=== PATIENT | female | born 1995 | race Caucasian/White ===

== ENCOUNTER 2020-04-15 16:53 | Inpatient (IN) | payer OTHER ==
[~2020-04-15] VITALS: Ht 152.4 cm; Wt 60.5 kg
[2020-04-15] MEDS ORDERED: PREN1TAB60 PO (17:07)
[2020-04-15] MEDS ORDERED: VALA500T4 PO (17:08)
[2020-04-15] MEDS ORDERED: FENTANYL/BUPIV./NS/PF 250 ML EPIDCONT SCH ×2 (17:08→20:29)
[2020-04-15] MEDS ORDERED: LACTATED RINGERS 1,000 ML IV SCH ×2 (17:08→20:29)
[2020-04-15] MEDS ORDERED: D5%-LACTATED RINGERS 1,000 ML IV SCH (17:08)
[2020-04-15] MEDS ORDERED: OXYTOCIN 30U/ 0.9% NaCL 500ML 500 ML IV ONE (17:08)
[2020-04-15] MEDS ORDERED: TERBUTALINE 1 MG/ML, 1ML SQ PRN (17:30)
[2020-04-15] MEDS ORDERED: FENTANYL PF 100 MCG/2ML IVPush PRN (17:30)
[2020-04-15] MEDS ORDERED: ONDANSETRON 2MG/ML, 2ML IVPush PRN (17:30)
[2020-04-15] MEDS ORDERED: FENTANYL PF 500 MCG, BUPIVACAINE/PF 0.5%, 30ML 62.5 ML in SODIUM CHLORIDE 0.9% 177.5 ML EPIDCONT SCH (17:30)
[2020-04-15] MEDS ORDERED: TERBUTALINE 1 MG/ML, 1ML IVPush PRN (17:30)
[2020-04-15 17:35] VITALS: BP 133/71
[2020-04-15 17:59] LABS: MEAN CORPUSCULAR HEMOGLOBIN 33.2 pg (27.0-34.8); MEAN CORPUSCULAR HGB CONC 33.7 g/dL (32.4-35.8); MEAN CORPUSCULAR VOLUME 98.4 fL (80-100); MEAN PLATELET VOLUME 8.1 fL (7.4-10.4); PLATELET COUNT 219 x10^3/uL (130-400); RED BLOOD COUNT 3.44 x10^6/uL (3.82-5.3); RED CELL DISTRIBUTION WIDTH 13.6 % (9.6-15.2)
[2020-04-15] MEDS ORDERED: LIDOCAINE 1%, 20ML ONE (18:08)
[2020-04-15] MEDS ORDERED: NEWBORN KIT ONE (18:08)
[2020-04-15] MEDS ORDERED: MISOPROSTOL 200 MCG TABLET ONE (18:09)
[2020-04-15] MEDS ORDERED: FENTANYL PF 100 MCG/2ML ONE (18:09)
[2020-04-15] MEDS ORDERED: OXYTOCIN 30U/ 0.9% NaCL 500ML 500 ML ONE (18:18)
[2020-04-15 18:29] LABS: AMPHETAMINE SCREEN, URINE Negative (Negative); BARBITURATE SCREEN, URINE Negative (Negative); BENZODIAZEPINE SCREEN, URINE Negative (Negative); CANNABINOID SCREEN, URINE Negative (Negative); COCAINE SCREEN, URINE Negative (Negative); METHADONE SCREEN, URINE Negative (Negative); OPIATE SCREEN, URINE Negative (Negative)
[2020-04-15 18:38] LABS: MD YES
[2020-04-15 18:39] LABS: BAND#(MANUAL) 1.46 x10^3/uL; BANDS%(MANUAL) 9 % (0-7); BASOS#(MANUAL) 0.16 x10^3/uL (0-0.1); BASOS% (MANUAL) 1 % (0-1); LYMPH#(MANUAL) 0.97 x10^3/uL (1-3.4); LYMPHS% (MANUAL) 6 % (22-44); MONOS#(MANUAL) 0.97 x10^3/uL (0.3-2.7); MONOS% (MANUAL) 6 % (2-9); SEG#(MANUAL) 12.64 x10^3/uL (1.8-6.8); SEGS% (MANUAL) 78 % (42-75)
[2020-04-15 18:40] LABS: <PLATELET ESTIMATE> ADEQUATE; <PLT MORPHOLOGY> NORMAL PLT MORPH; <RBC MORPHOLOGY> NORMAL
[2020-04-15] MEDS ORDERED: LACTATED RINGERS 1,000 ML IVBOLUS PRN (20:30)
[2020-04-15] MEDS ORDERED: EPHEDRINE 50 MG/ML, 1ML IVPush PRN (20:30)
[2020-04-15] MEDS ORDERED: NALOXONE 0.4 MG/ML, 1ML IVPush PRN (20:30)
[2020-04-15] MEDS ORDERED: BUPIVACAINE 0.25% ONE (20:31)
[2020-04-15] MEDS ORDERED: OXYTOCIN 30U/ 0.9% NaCL 500ML 500 ML IV PRN (21:32)
[2020-04-16] MEDS: OXYTOCIN 30U/ 0.9% NaCL 500ML 500 ML IV SCH ×3 (01:52→21:52)
[2020-04-16] MEDS ORDERED: MAGNESIUM HYDROXIDE 8%, 30ML UDC PO PRN (02:00)
[2020-04-16] MEDS ORDERED: MISOPROSTOL 200 MCG TABLET PR PRN (02:00)
[2020-04-16] MEDS ORDERED: MEASLES,MUMPS&RUBELLA VACC/PF 0.5 ML SQ-VACC PRN (02:00)
[2020-04-16] MEDS ORDERED: HYDROcodone/APAP 5/325 TABLET PO PRN ×2 (02:00)
[2020-04-16] MEDS ORDERED: ACETAMINOPHEN 325 MG TABLET PO PRN ×2 (02:00)
[2020-04-16] MEDS ORDERED: RHOGAM FROM BLOOD BANK 1 NOTE EA IM/IV ONE (02:00)
[2020-04-16 03:44] VITALS: BP 121/63
[2020-04-16 07:10] VITALS: BP 118/66
[2020-04-16] MEDS: PRENATAL VIT/IRON/FA 1 EACH TABLET PO SCH (07:58)
[2020-04-16] MEDS: IBUPROFEN 600 MG TABLET PO PRN ×2 (07:58→19:34)
[2020-04-16] MEDS: DOCUSATE 100 MG CAPSULE PO PRN ×2 (07:58→19:34)
[2020-04-16 09:17] LABS: MEAN CORPUSCULAR HEMOGLOBIN 33.2 pg (27.0-34.8); MEAN CORPUSCULAR HGB CONC 33.3 g/dL (32.4-35.8); MEAN CORPUSCULAR VOLUME 99.5 fL (80-100); MEAN PLATELET VOLUME 7.6 fL (7.4-10.4); PLATELET COUNT 222 x10^3/uL (130-400); RED BLOOD COUNT 3.41 x10^6/uL (3.82-5.3); RED CELL DISTRIBUTION WIDTH 13.2 % (9.6-15.2)
[2020-04-16 09:59] LABS: BAND#(MANUAL) 1.09 x10^3/uL; BANDS%(MANUAL) 6 % (0-7); EOS#(MANUAL) 0.18 x10^3/uL (0.0-0.4); EOS% (MANUAL) 1 % (1-7); LYMPH#(MANUAL) 0.55 x10^3/uL (1-3.4); LYMPHS% (MANUAL) 3 % (22-44); MD YES; MONOS#(MANUAL) 0.91 x10^3/uL (0.3-2.7); MONOS% (MANUAL) 5 % (2-9); SEGS% (MANUAL) 85 % (42-75)
[2020-04-16 10:00] LABS: <PLATELET ESTIMATE> ADEQUATE; <PLT MORPHOLOGY> NORMAL PLT MORPH; <RBC MORPHOLOGY> NORMAL
[2020-04-16 12:00] VITALS: BP 107/66
[2020-04-16 16:00] VITALS: BP 128/72
[2020-04-16 19:30] VITALS: BP 123/63
[2020-04-17 00:20] VITALS: BP 115/68
[2020-04-17] MEDS: IBUPROFEN 600 MG TABLET PO PRN (06:02)
[2020-04-17] MEDS: OXYTOCIN 30U/ 0.9% NaCL 500ML 500 ML IV SCH (07:52)
[2020-04-17] MEDS: PRENATAL VIT/IRON/FA 1 EACH TABLET PO SCH (09:00)
[2020-04-17] MEDS ORDERED: IBUP-1222 PO (09:30)
[2020-04-17] MEDS ORDERED: HYDR-3240 PO (09:31)
== END 2020-04-17 19:02 | disposition home or self-care (01) | DRG 807 ==
LOC: LDIP 16:53 → 2NW 04-16 03:40
PROVIDERS: ADMIT Obstetrics & Gynecology; ATTEND Obstetrics & Gynecology
PROC: 10907ZC Drainage of Amniotic Fluid, Therapeutic from Products of Conception, Via Natural or Artificial Opening (ICD-10-PCS; principal; 2020-04-16)
PROC: 10E0XZZ Delivery of Products of Conception, External Approach (ICD-10-PCS; 2020-04-16)
PROC: 3E0R3BZ Introduction of Anesthetic Agent into Spinal Canal, Percutaneous Approach (ICD-10-PCS; 2020-04-16)
PROC: 00HU33Z Insertion of Infusion Device into Spinal Canal, Percutaneous Approach (ICD-10-PCS; 2020-04-16)
DX: O66.0 Obstructed labor due to shoulder dystocia (principal); Z37.0 Single live birth; Z3A.37 37 weeks gestation of pregnancy; Z80.0 Family history of malignant neoplasm of digestive organs; Z81.8 Family history of other mental and behavioral disorders; Z82.71 Family history of polycystic kidney; O69.81X0 Labor and delivery complicated by cord around neck, without compression, not applicable or unspecified
CPT/HCPCS: 36415; S0020; 80307; 85025; 86592; 86850; 86900; G0378; J3010; J3490; J2590; J7050; J7120